=== PATIENT | male | born 1990 | race Caucasian/White ===

== ENCOUNTER 2021-05-07 22:56 | Emergency (ER) | payer SELFPAY ==
[2021-05-07 23:46] LABS: Urine Blood Negative (Negative); Urine Glucose Negative (Negative); Urine Protein 2+ (Negative); Urine Specific Gravity >=1.030 (1.005-1.030)
[2021-05-08] MEDS ORDERED: NA CHLORIDE 0.9% 1,000 ML ONE ×2 (00:23→02:00)
[2021-05-08 01:05] LABS: Potassium 3.3 mmol/L (3.5-5.1)
--- NOTE | 2021-05-08 01:44 | ER ---
Nurse's Notes [facility] Name: Lambert Bajwa Age: 31 yrs Sex: Male : 1990 Arrival Date: 05/07/2021 Time: 23:02 Bed 10 Private MD: Diagnosis: Dehydration Presentation: 05/07 23:20 Chief complaint: Patient states: Abd pain/back pain/body aches, vomiting, h/a x 1 day. ss Coronavirus screen: Vaccine status: Patient reports being unvaccinated. The client reports previous COVID testing was negative. Ebola Screen: Patient negative for fever greater than or equal to 101.5 degrees Fahrenheit, and additional compatible Ebola Virus Disease symptoms Patient denies exposure to infectious person. Patient denies travel to an Ebola-affected area in the 21 days before illness onset. Initial Sepsis Screen: Does the patient meet any 2 criteria? No. Patient's initial sepsis screen is negative. Does the patient have a suspected source of infection? No. Patient's initial sepsis screen is negative. Risk Assessment: Do you want to hurt yourself or someone else? Patient reports no desire to harm self or others. Onset of symptoms was May 07, 2021. 23:20 Method Of Arrival: Ambulatory 23:20 Acuity: ANGELIQUE 3 23:24 Note 800mg Motrin taken 1 hour EQUIPMENT TECH. Triage Assessment: 05/08 00:05 General: Appears uncomfortable, Behavior is calm, cooperative. Pain: Complains of pain cc4 in head, chest, abdomen, right arm, left arm, right leg, left leg and left foot Pain currently is 4 out of 10 on a pain scale. Quality of pain is described as aching, c/o headache \\T\\ generalized body aches with muscular weakness that reportedly started this am with dizzness and vomiting; reports body aches \\T\\ headache improving to a "4" APT since taking motrin EQUIPMENT TECH/. GI: Reports nausea, Reports vomiting multiple times earlier today with dizziness; generalized body aches, headache \\T\\ weakness. Historical: - Allergies: 05/07 23:23 No Known Allergies; ss - Home Meds: 23:23 None [Active]; ss - PMHx: 23:23 None; ss - PSHx: 23:23 Tonsillectomy; ss - Immunization history:: Adult Immunizations up to date. - Social history:: Smoking status: Patient reports the use of cigarette tobacco products, smokes one pack cigarettes per day. Patient uses street drugs, marijuana. Screenin/13 00:05 Abuse screen: Denies threats or abuse. Nutritional screening: No deficits noted. cc4 Tuberculosis screening: No symptoms or risk factors identified. Fall Risk None identified. Assessment: 00:05 General: Appears uncomfortable. Pain: Complains of pain in head, chest, abdomen, cc4 pelvis, right arm, left arm, right leg and left leg Pain currently is 4 out of 10 on a pain scale. Quality of pain is described as aching, weakness. Neuro: Level of Consciousness is awake, alert, obeys commands. 00:05 Neuro: Oriented to person, place, time, situation. cc4 00:05 Cardiovascular: No deficits noted. Rhythm is sinus rhythm. Respiratory: No deficits cc4 noted. Airway is patent Respiratory effort is even, unlabored. GI: Abdomen is flat, non-distended, Reports vomiting multiple times today; denies any loose stools. : No deficits noted. No signs and/or symptoms were reported regarding the genitourinary system. EENT: No deficits noted. No signs and/or symptoms were reported regarding the EENT system. Derm: No deficits noted. Skin is intact. Musculoskeletal: Reports weakness in right arm, left arm, right leg and left leg Patient c/o generalized weakness. 00:05 Reassessment: IV NS started right AC \\T\\ infusing \\T\\ bolus rate with no s/sx's of cc 4 infiltration noted of site, debbie. well; blood drawn \\T\\ sent to lab. 02:00 Reassessment: Patient appears in no apparent distress at this time. CBC returned with cc4 WBC's 13.3 \\T\\ Plt 36,000; DENNYS Blackmon notified stating, "I know" with no new orders rec'd; IV NS con't to infuse right AC with no difficulty; voices no complaints APT. 02:25 Reassessment: Patient appears in no apparent distress at this time. IV NS infusion of cc4 total intake 2000ml complete with IV discontinued right AC with no difficulty/bleeding, debbie. well; VSS. Patient states feeling better. Vital Signs: 05/07 23:20 BP 131 / 90; Pulse 70; Resp 18; Temp 98.8; Pulse Ox 98% on R/A; Weight 49.9 kg; Height ss 5 ft. 2 in. (157.48 cm); Pain 4/10; 05/08 00:05 BP 128 / 79; Pulse 73; Resp 16; Temp 98.7; Pulse Ox 99% on R/A; cc4 01:30 BP 110 / 75; Pulse 72; Resp 20; Pulse Ox 100% on R/A; cc4 02:00 BP 112 / 65; Pulse 74; Resp 16; Pulse Ox 100% on R/A; cc4 02:25 BP 116 / 62; Pulse 72; Resp 16; Temp 98.3(O); Pulse Ox 100% ; cc4 05/07 23:20 Body Mass Index 20.12 (49.90 kg, 157.48 cm) ss Vitals: 00:05 Cardiac Rhythm Assessment Regular Sinus rhythm Other No ectopy noted. cc4 ED Course: 05/07 23:02 Patient arrived in ED. bp1 23:23 Triage completed. ss 23:23 Shelia Self FNP-C is PHCP. kb 23:24 Gregor Sanchez MD is Attending Physician. kb 23:31 Influenza Screen (a \\T\\ B) Sent. cc4 23:57 SARS-COV-2 RT PCR Sent. ld1 23:57 Influenza Screen (a \\T\\ B) Sent. ld1 05/08 00:05 Arm band placed on. cc4 00:05 Patient has correct armband on for positive identification. Bed in low position. Call cc4 light in reach. Side rails up X 1. youth nutritional monitor on. Pulse ox on. NIBP on. 00:23 Brandee Durán, RN is Primary Nurse. cc4 00:24 Basic Metabolic Panel Sent. cc4 00:24 CBC with Diff Sent. cc4 02:25 No provider procedures requiring assistance completed. cc4 02:25 IV discontinued, intact, bleeding controlled, No redness/swelling at site. Pressure cc4 dressing applied. Administered Medications: 03:04 Discontinued: NS 0.9% 1000 ml IV at 1000 ml once cc4 03:04 Discontinued: NS 0.9% 1000 ml IV at 1000 ml once cc4 00:05 Drug: NS 0.9% 1000 ml Route: IV; Rate: 1000 ml; Site: right antecubital; cc4 01:55 Follow up: Response: No change in condition; IV Intake: 1000ml cc4 01:35 Drug: NS 0.9% 1000 ml Route: IV; Rate: 1000 ml; Site: right antecubital; cc4 02:25 Follow up: IV Intake: 1000ml cc4 Intake: 01:55 IV: 1000ml; Total: 1000ml. cc4 02:25 IV: 1000ml; Total: 2000ml. cc4 Outcome: 01:43 Discharge ordered by MD. rios 02:25 Condition: improved cc4 02:25 Discharged to home ambulatory. cc4 02:25 Discharge instructions given to patient, Instructed on discharge instructions, follow up and referral plans. medication usage, Demonstrated understanding of instructions, follow-up care, medications, Prescriptions given X 1. 03:08 Patient left the ED. cc4 Signatures: Shelia Self, POLITICAL SCIENCE PROFESSOR-C POLITICAL SCIENCE PROFESSOR-Gatob Amanda Chino, ZAINAB RN ss Tracee Avalos Lauren, RN RN ld1 Brandee Durán RN RN cc4 Corrections: (The following items were deleted from the chart) 05/07 23:39 23:31 CORONAVIRUS+ drawn and sent. cc4 EDMS
--- NOTE | 2021-05-08 01:44 | EDPHYS ---
Physician Documentation [facility] Name: Lambert Bajwa Age: 31 yrs Sex: Male : 1990 Arrival Date: 05/07/2021 Time: 23:02 Bed 10 Private MD: ED Physician Gregor Sanchez HPI: 05/08 00:47 This 31 yrs old Male presents to ER via Ambulatory with complaints of kb Vomiting, Runny Nose, Muscle Cramps. 00:47 The patient or guardian reports cough, that is intermittent, described as mild, flu kb symptoms, myalgias. Onset: The symptoms/episode began/occurred this morning. Severity of symptoms: At their worst the symptoms were mild, moderate, in the emergency department the symptoms are unchanged. Modifying factors: The symptoms are alleviated by nothing, the symptoms are aggravated by nothing. Associated signs and symptoms: Pertinent positives: nausea, rhinorrhea, vomiting. The patient has not experienced similar symptoms in the past. The patient has not recently seen a physician. Pt reports headache, muscle cramps, bodyaches, cough, runny nose, vomiting that started this morning. States he is concerned he has covid. Historical: - Allergies: 05/07 23:23 No Known Allergies; ss - Home Meds: 23:23 None [Active]; ss - PMHx: 23:23 None; ss - PSHx: 23:23 Tonsillectomy; ss - Immunization history:: Adult Immunizations up to date. - Social history:: Smoking status: Patient reports the use of cigarette tobacco products, smokes one pack cigarettes per day. Patient uses street drugs, marijuana. ROS: 05/08 00:46 Cardiovascular: Negative for chest pain, palpitations, and edema. kb Constitutional: Positive for body aches, chills, fatigue, malaise. ENT: Positive for rhinorrhea. Respiratory: Positive for cough. Abdomen/GI: Positive for nausea and vomiting. Neuro: Positive for headache. All other systems are negative. Exam: 00:46 Constitutional: This is a well developed, well nourished patient who is awake, alert, kb and in no acute distress. Head/Face: Normocephalic, atraumatic. ENT: Moist Mucous membranes Respiratory: Respirations even and unlabored. No increased work of breathing, no retractions or nasal flaring. Abdomen/GI: Soft, non-tender. No distention Skin: Warm, dry with normal turgor. Normal color. MS/ Extremity: Pulses equal, no cyanosis. Neurovascular intact. Full, normal range of motion. Neuro: Awake and alert, GCS 15, oriented to person, place, time, and situation. Moves all extremities. Normal gait. Psych: Awake, alert, with orientation to person, place and time. Behavior, mood, and affect are within normal limits. Vital Signs: 05/07 23:20 BP 131 / 90; Pulse 70; Resp 18; Temp 98.8; Pulse Ox 98% on R/A; Weight 49.9 kg; Height ss 5 ft. 2 in. (157.48 cm); Pain 11/03; 05/08 00:05 BP 128 / 79; Pulse 73; Resp 16; Temp 98.7; Pulse Ox 99% on R/A; cc4 01:30 BP 110 / 75; Pulse 72; Resp 20; Pulse Ox 100% on R/A; cc4 02:00 BP 112 / 65; Pulse 74; Resp 16; Pulse Ox 100% on R/A; cc4 02:25 BP 116 / 62; Pulse 72; Resp 16; Temp 98.3(O); Pulse Ox 100% ; cc4 05/07 23:20 Body Mass Index 20.12 (49.90 kg, 157.48 cm) ss MDM: 05/07 23:40 Patient medically screened. kb 05/08 00:44 Data reviewed: vital signs, nurses notes. Data interpreted: Pulse oximetry: on room air kb is 98 %. Interpretation: normal. 01:43 Counseling: I had a detailed discussion with the patient and/or guardian regarding: the kb historical points, exam findings, and any diagnostic results supporting the discharge/admit diagnosis, lab results, the need for outpatient follow up, a family practitioner, to return to the emergency department if symptoms worsen or persist or if there are any questions or concerns that arise at home. 05/07 23:27 Order name: Influenza Screen (a \T\ B); Complete Time: 00:24 ss 05/07 23:39 Order name: SARS-COV-2 RT PCR; Complete Time: 00:52 EDMS 05/07 23:46 Order name: Urine Dipstick-Ancillary; Complete Time: 23:50 EDMS 05/07 23:50 Order name: CBC with Diff kb 05/07 23:50 Order name: Basic Metabolic Panel; Complete Time: 01:06 kb 05/07 23:27 Order name: Urine Dipstick-Ancillary (obtain specimen); Complete Time: 23:56 ss 05/07 23:50 Order name: IV Start; Complete Time: 00:24 kb 05/08 01:58 Order name: CBC Smear Scan EDMS Administered Medications: 03:04 Discontinued: NS 0.9% 1000 ml IV at 1000 ml once cc4 03:04 Discontinued: NS 0.9% 1000 ml IV at 1000 ml once cc4 00:05 Drug: NS 0.9% 1000 ml Route: IV; Rate: 1000 ml; Site: right antecubital; cc4 01:55 Follow up: Response: No change in condition; IV Intake: 1000ml cc4 01:35 Drug: NS 0.9% 1000 ml Route: IV; Rate: 1000 ml; Site: right antecubital; cc4 02:25 Follow up: IV Intake: 1000ml cc4 Disposition: 07:46 Co-signature as Attending Physician, Gregor Sanchez MD I agree with the assessment and gin plan of care. Disposition Summary: 05/08/21 01:43 Discharge Ordered Location: Home kb Condition: Stable kb Diagnosis - Dehydration kb Followup: kb - With: Emergency Department - When: As needed - Reason: Followup: kb - With: Private Physician - When: 2 - 3 days - Reason: Recheck today's complaints, Continuance of care, Re-evaluation by your physician Discharge Instructions: - Discharge Summary Sheet kb - Dehydration, Adult kb Forms: - Medication Reconciliation Form kb - Thank You Letter kb - Antibiotic Education kb - Prescription Opioid Use kb Prescriptions: - Zofran 4 mg Oral Tablet - take 1 tablet by ORAL route every 6 hours As needed; 20 tablet; Refills: 0, kb Product Selection Permitted Signatures: Dispatcher [employer] EDShelia Davison, CASHIER HOST/HOSTESS-Pancho NOYOLA-Gregor Cantu MD MD cha Smirch, Shelby, RN RN Brandee Rivero RN RN cc4 Corrections: (The following items were deleted from the chart) 05/07 23:39 23:27 CORONAVIRUS+MR.LAB.BRZ ordered. EDMS EDMS
[2021-05-08 01:55] LABS: Absolute Lymphocytes (CBC) 3.1 K/uL (0.7-4.9); Basophils % 0.4 % (0-1.3); Hematocrit 41.5 % (39.6-49.0); Lymphocytes % 23.5 % (15.3-44.8); MPV 10.5 fL (7.6-11.3); RBC Red Blood Cell Count 4.53 M/uL (4.33-5.43)
[2021-05-08 02:15] LABS: Blood Morphology Comment NOT SEEN (NOT SEEN); Platelet Estimate DECR; White Blood Cell Scan OK (OK)
[2021-05-08 03:15] VITALS: O2SAT 100
[2021-05-08 03:18] VITALS: BP 116/62; TEMP 98.3
== END 2021-05-08 03:08 | disposition home or self-care (01) ==
LOC: ER 22:56
DX: E86.0 Dehydration (principal); Z20.822 Contact with and (suspected) exposure to COVID-19; F17.210 Nicotine dependence, cigarettes, uncomplicated
CPT/HCPCS: 36415; 80048; 81003; 85025; 87804; 99284; J7030; U0003

== ENCOUNTER 2024-07-29 07:50 | Emergency (ER) | payer SELFPAY ==
--- NOTE | 2024-07-29 08:09 | EDPHYS ---
Physician Documentation [facility] Name: Lambert Bajwa Age: 34 yrs Sex: Male : 1990 Arrival Date: 07/29/2024 Time: 07:50 Bed IW1 Private MD: ED Physician Roland Sahu HPI: 07/29 08:10 This 34 yrs old Male presents to ER via Ambulatory with complaints of Mouth ec2 Problem, Abscess. 08:10 Patient arrives for dentalgia as well as right upper cheek swelling. Reports that he ec2 had noticed some swelling to the right upper lip as well as cheek. No fevers or chills, nausea or vomiting. Reports he has a issue with poor dentition with still that he needs teeth pulled.. Historical: - Allergies: 08:03 No Known Allergies; iw - Home Meds: 08:03 None [Active]; iw - PMHx: 08:03 None; iw - PSHx: 08:03 Tonsillectomy; iw - Infectious Disease History:: Denies. - Social history:: Smoking status: Patient reports the use of cigarette tobacco products, smokes one-half pack cigarettes per day. ROS: 08:10 Constitutional: as per hpi ec2 Exam: 08:10 Constitutional: GEN: NAD Head: atraumatic Eyes: EOMI Ears: External ears are normal. ec2 Mouth: Poor dentition noted throughout, right upper teeth with mild erythema at the gumline, trace amount of overlying facial swelling. No abscess or fluctuance appreciated. No trismus. No issues with secretions. CV: regular rate LUNGS: no respiratory distress ABD: non-distended SKIN: no evidence of rashes MSK: no evidence of trauma Vital Signs: 08:02 BP 114 / 79; Pulse 92; Resp 16; Temp 98.6; Pulse Ox 99% on R/A; Weight 49.9 kg; Height iw 5 ft. 2 in. ; Pain 5; 08:02 Body Mass Index 20.12 (49.90 kg, 157.48 cm) iw 08:02 Pain Scale: Adult iw MDM: 08:04 Medical Screening Exam initiated ec2 08:10 Data reviewed: vital signs, nurses notes. ED course: Patient arrives today for ec2 dentalgia and facial swelling. Examination yields mild findings as above. Will treat for dental abscess with Augmentin and have the patient follow-up with his dentist. Return precautions given.. Administered Medications: 08: Drug: Amoxicillin-Clavulanate PO 875 mg PO once Route: PO; iw 08: Follow up: Response: Medication administered at discharge. iw 08: Drug: Ketorolac IM 15 mg IM once Route: IM; Site: right deltoid; iw 08: Follow up: Response: Medication administered at discharge. iw Disposition Summary: 07/29/24 08:09 Discharge Ordered Notes: Location: Home ec2 Condition: Stable ec2 Diagnosis - Dental Abscess ec2 Followup: ec2 - With: Private Physician - When: - Reason: Re-evaluation by your physician Discharge Instructions: - Discharge Summary Sheet ec2 - Dental Abscess, [id number] ec2 Forms: - Work release form eb - Medication Reconciliation Form ec2 - Antibiotic Education ec2 - Prescription Opioid Use ec2 - Patient Portal Instructions ec2 - Leadership Thank You Letter ec2 Prescriptions: - Augmentin 875-125 mg Oral Tablet - take 1 tablet ORAL route every 12 hours for 10 days; 20 tablet; Refills: 0, ec2 Product Selection Permitted Signatures: Marilee Newberry RN RN iw Roland Sahu MD MD ec2
--- NOTE | 2024-07-29 08:09 | ER ---
Nurse's Notes [facility] Name: Lambert Bajwa Age: 34 yrs Sex: Male : 1990 Arrival Date: 07/29/2024 Time: 07:50 Bed IW1 Private MD: Diagnosis: Dental Abscess Presentation: 07/29 08:02 Chief complaint: Patient states: front tooth was hurting yesterday , this morning my iw lip is swollen , took some ibuprofen and the swelling seems to be better, and I have a headache. Coronavirus screen: At this time, the client does not indicate any symptoms associated with coronavirus-19. Ebola Screen: No symptoms or risks identified at this time. Initial Sepsis Screen: Does the patient meet any 2 criteria? No. Patient's initial sepsis screen is negative. Does the patient have a suspected source of infection? No. Patient's initial sepsis screen is negative. Risk Assessment: Do you want to hurt yourself or someone else? Patient reports no desire to harm self or others. Onset of symptoms was July 28, 2024. 08:02 Method Of Arrival: Ambulatory iw 08:02 Acuity: ANGELIQUE 4 iw Historical: - Allergies: 08:03 No Known Allergies; iw - Home Meds: 08:03 None [Active]; iw - PMHx: 08:03 None; iw - PSHx: 08:03 Tonsillectomy; iw - Infectious Disease History:: Denies. - Social history:: Smoking status: Patient reports the use of cigarette tobacco products, smokes one-half pack cigarettes per day. Screenin:10 [facility] ED Fall Risk Assessment (Adult) History of falling in the last 3 months, iw including since admission No falls in past 3 months (0 pts) Confusion or Disorientation No (0 pts) Intoxicated or Sedated No (0 pts) Impaired Gait No (0 pts) Mobility Assist Device Used No (0 pt) Altered Elimination No (0 pt) Score/Fall Risk Level 0 - 2 = Low Risk Oriented to surroundings, Maintained a safe environment. Abuse screen: Denies threats or abuse. Nutritional screening: No deficits noted. Tuberculosis screening: No symptoms or risk factors identified. Assessment: 08:09 General: Appears in no apparent distress. Behavior is calm, cooperative. Pain: iw Complains of pain in mouth. Neuro: Level of Consciousness is awake, alert, obeys commands, Oriented to person, place, time, situation, Moves all extremities. Full function. Cardiovascular: Patient's skin is warm and dry. Respiratory: Respiratory effort is even, unlabored, Respiratory pattern is regular. EENT: Reports pain in mouth. Derm: Skin is intact, is healthy with good turgor. Musculoskeletal: Range of motion: intact in all extremities. Vital Signs: 08:02 BP 114 / 79; Pulse 92; Resp 16; Temp 98.6; Pulse Ox 99% on R/A; Weight 49.9 kg; Height iw 5 ft. 2 in. ; Pain 5/10; 08:02 Body Mass Index 20.12 (49.90 kg, 157.48 cm) iw 08:02 Pain Scale: Adult iw ED Course: 07:55 Patient arrived in ED. sj2 08:03 Triage completed. iw 08:03 Roland Sahu MD is Attending Physician. ec2 08:04 Arm band placed on. iw 08:09 Marilee Newberry RN is Primary Nurse. iw 08:29 Patient has correct armband on for positive identification. Provided Education on: . iw 08:29 No provider procedures requiring assistance completed. Patient did not have IV access iw during this emergency room visit. Administered Medications: 08:29 Drug: Amoxicillin-Clavulanate PO 875 mg PO once Route: PO; iw 08:29 Follow up: Response: Medication administered at discharge. iw 08:29 Drug: Ketorolac IM 15 mg IM once Route: IM; Site: right deltoid; iw 08:29 Follow up: Response: Medication administered at discharge. iw Medication: 08:11 VIS not applicable for this client. iw Outcome: 08: Discharge ordered by . ec2 08:29 Discharged to home ambulatory, iw 08:29 Condition: good :29 Discharge instructions given to patient, Instructed on discharge instructions, follow up and referral plans. medication usage, Demonstrated understanding of instructions, follow-up care, medications, Prescriptions given X 1, :29 Patient left the ED. iw Signatures: Marilee Newberry, ZAINAB RN iw Roland Sahu MD MD ec2 Shawn Wild 2
[2024-07-29] MEDS ORDERED: AMOX/K CLAV 875 MG TAB ONE (08:21)
[2024-07-29] MEDS ORDERED: KETOROLAC 30 MG/ML INJ ONE (08:22)
[2024-07-29 12:51] VITALS: BP 114/79; TEMP 98.6; O2SAT 99
== END 2024-07-29 08:29 | disposition home or self-care (01) ==
LOC: ER 07:50
DX: K04.7 Periapical abscess without sinus (principal)
CPT/HCPCS: 96372; 99284